=== PATIENT | female | born 1935 | race Asian ===

== ENCOUNTER 2020-04-25 17:44 | Emergency (ER) | payer MEDICARE ==
[~2020-04-25] VITALS: Ht 152.4 cm; Wt 62.4 kg
--- NOTE | 2020-04-25 18:56 | NUR ---
WOUND TO INNER RT ANKLE X 1 WEEK. HAS BEEN [facility] MADE OINTMENT (OLEO & BABY POWDER). LOWER LEGS DARKENED BILAT, PEDAL PULSES DIMINISHED BILAT.
[2020-04-25] MEDS ORDERED: IBUPROFEN 200 MG TABLET PO ONE (19:00)
[2020-04-25 19:05] VITALS: BP 164/65
[2020-04-25] MEDS ORDERED: IBUPROFEN 600 MG TABLET ONE (19:11)
[2020-04-25 19:12] LABS: BASOPHILS % (AUTO) 1 % (0-1); EOSINOPHILS % (AUTO) 5 % (1-7); LYMPHOCYTES % (AUTO) 23 % (22-44); MEAN CORPUSCULAR HEMOGLOBIN 29.8 pg (27.0-34.8); MEAN CORPUSCULAR HGB CONC 32.1 g/dL (32.4-35.8); MEAN PLATELET VOLUME 9.2 fL (7.4-10.4); MONOCYTES % (AUTO) 11 % (2-9); NEUTROPHILS % (AUTO) 60 % (42-75); PLATELET COUNT 209 x10^3/uL (130-400); RED BLOOD COUNT 4.29 x10^6/uL (3.82-5.3); RED CELL DISTRIBUTION WIDTH 14.9 % (9.6-15.2)
--- NOTE | 2020-04-25 19:16 | NUR ---
U/S AT BS. BRIANDA GIVEN. APPLE JUICE & SHANITA CRACKERS PROVIDED TO PT.
[2020-04-25 19:24] LABS: CHLORIDE 108 mmol/L (98-107)
[2020-04-25 19:33] LABS: MD NO
[2020-04-25 19:38] LABS: ANION GAP 6 mmol/L (5-15); CALCIUM 8.9 mg/dL (8.5-10.1); CREATININE 0.68 mg/dL (0.55-1.02)
--- NOTE | 2020-04-25 20:08 | NUR ---
REPORTS IMPROVEMENT IN PAIN.
== END 2020-04-25 20:21 | disposition home or self-care (01) ==
LOC: ED 20:07
DX: I83.213 Varicose veins of right lower extremity with both ulcer of ankle and inflammation (principal); I83.223 Varicose veins of left lower extremity with both ulcer of ankle and inflammation; L03.115 Cellulitis of right lower limb
CPT/HCPCS: 36415; 80048; 82962; 85025; 99284

== ENCOUNTER 2020-04-28 11:08 | Emergency (ER) | payer MEDICARE ==
[~2020-04-28] VITALS: Ht 149.9 cm; Wt 62.3 kg
[2020-04-28] MEDS ORDERED: SODIUM CHLORIDE FLUSH 10ML SYR IVF ONE (12:00)
--- NOTE | 2020-04-28 12:28 | NUR ---
NO ANSWER WHEN CALLED FOR ROOM PLACEMENT
[2020-04-28 12:52] LABS: BASOPHILS % (AUTO) 1 % (0-1); EOSINOPHILS % (AUTO) 4 % (1-7); LYMPHOCYTES % (AUTO) 23 % (22-44); MEAN CORPUSCULAR HGB CONC 32.2 g/dL (32.4-35.8); MEAN PLATELET VOLUME 9.5 fL (7.4-10.4); MONOCYTES % (AUTO) 10 % (2-9); NEUTROPHILS % (AUTO) 63 % (42-75); PLATELET COUNT 192 x10^3/uL (130-400); RED BLOOD COUNT 4.23 x10^6/uL (3.82-5.3); RED CELL DISTRIBUTION WIDTH 15.4 % (9.6-15.2)
[2020-04-28 12:58] LABS: MD NO
--- NOTE | 2020-04-28 13:00 | NUR ---
RIGHT MEDIAL LOWER LEG WOUND X 2 MONTHS. PROVIDER TO BEDSIDE TO CLEANSE THEN DRESS, XRAY TO R/O OSTEO THEN DEFER TO WOUND CARE
[2020-04-28 13:05] LABS: ALBUMIN 3.7 g/dL (3.4-5.0); CALCIUM 8.8 mg/dL (8.5-10.1); CHLORIDE 110 mmol/L (98-107)
[2020-04-28 13:09] LABS: ALANINE AMINOTRANSFERASE 17 U/L (12-78); ALKALINE PHOSPHATASE 95 U/L (45-117); BILIRUBIN,TOTAL 0.6 mg/dL (0.2-1.0); CREATININE 0.61 mg/dL (0.55-1.02); TOTAL PROTEIN 7.8 g/dL (6.4-8.2)
[2020-04-28 13:17] LABS: ANION GAP 6 mmol/L (5-15)
[2020-04-28] MEDS ORDERED: MUPIROCIN OINT 2%, 22GM TP ONE (14:00)
[2020-04-28 14:50] VITALS: BP 145/70
== END 2020-04-28 15:01 | disposition home or self-care (01) ==
LOC: ED 13:31
DX: L89.892 Pressure ulcer of other site, stage 2 (principal); M79.604 Pain in right leg; M79.89 Other specified soft tissue disorders
CPT/HCPCS: 36415; 80053; 83605; 85025; 87040; 99283